=== PATIENT | male | born 1940 | race Two or more races ===

== ENCOUNTER 2018-05-03 13:56 | Emergency (ER) | payer MEDICARE ==
[2018-05-03 14:11] VITALS: BP 114/69
--- NOTE | 2018-05-03 14:53 | UC ---
Hand/Wrist HPI - HPI Summary HPI Summary: patient is on chemo for lymphoma, has swelling left hand with fevers last night- -had similar a few week ago rx with antibiotics and it seem to get better - History Of Current Complaint Chief Complaint: UCUpperExtremity Stated Complaint: WRIST PAIN, FEVER Time Seen by Provider: 05/03/18 14:52 Hx Obtained From: Patient Mechanism Of Injury: no injury Onset/Duration: Gradual Onset, Lasting Days Pain Intensity: 3 Pain Scale Used: 0-10 Numeric Alleviating Factor(s): Nothing Associated Signs And Symptoms: Positive: Swelling - left hand, Redness - left hand Related History: Dominant Hand Right - Allergies/Home Medications Allergies/Adverse Reactions: Allergies Allergy/AdvReac Type Severity Reaction Status Date / Time sulfamethoxazole Allergy See Comment Verified 05/03/18 15:50 [From Bactrim] trimethoprim [From Bactrim] Allergy See Comment Verified 05/03/18 15:50 PMH/Surg Hx/FS Hx/Imm Hx Previously Healthy: No Endocrine History: Dyslipidemia Cardiovascular History: Hypertension GI/ History: Gastroesophageal Reflux Other Cancer History: lymphoma - Surgical History Surgical History: Yes Surgery Procedure, Year, and Place: TWO CARDIAC STENTS PLACED 2003. BILATERAL CARPAL TUNNEL. BILATERAL KNEES SCOPED, TONSILECTOMY. LUMP REMOVED FROM ABDOMEN - Family History Known Family History: Positive: None - Social History Occupation: Retired Lives: With Family Alcohol Use: None Substance Use Type: None Smoking Status (MU): Never Smoked Tobacco - Immunization History Most Recent Influenza Vaccination: Aug 2013 Most Recent Tetanus Shot: UTD Most Recent Pneumonia Vaccination: Aug 2013 Review of Systems Constitutional: Fever, Chills, Fatigue Skin: Negative Eyes: Negative ENT: Negative Respiratory: Negative Cardiovascular: Negative Gastrointestinal: Negative Genitourinary: Negative Motor: Negative Neurovascular: Negative Musculoskeletal: Arthralgia - left hand, Edema - left hand swelling Neurological: Negative Psychological: Negative Is Patient Immunocompromised?: Yes All Other Systems Reviewed And Are Negative: Yes Physical Exam Triage Information Reviewed: Yes Appearance: Well-Appearing, No Pain Distress, Well-Nourished Vital Signs: Initial Vital Signs Temp 99.2 F 05/03/18 14:07 Pulse 65 05/03/18 14:07 Resp 18 05/03/18 14:07 BP 114/69 05/03/18 14:07 Pulse Ox 100 05/03/18 14:07 Vital Signs Reviewed: Yes Eye Exam: Normal Eyes: Positive: Conjunctiva Clear ENT Exam: Normal ENT: Positive: Normal ENT inspection, Hearing grossly normal. Negative: Trismus , Muffled voice, Hoarse voice Dental Exam: Normal Neck exam: Normal Neck: Positive: Supple, Nontender Respiratory Exam: Normal Respiratory: Positive: Chest non-tender, Lungs clear, Normal breath sounds, No respiratory distress, No accessory muscle use Cardiovascular Exam: Normal Cardiovascular: Positive: RRR, No Murmur, Pulses Normal, Brisk Capillary Refill Musculoskeletal Exam: Other Musculoskeletal: Positive: Strength Intact, ROM Intact, Edema @ - left hand Neurological Exam: Normal Neurological: Positive: Alert, Muscle Tone Normal Psychological Exam: Normal Skin Exam: Normal Hand/Wrist Course/Dx - Course Course Of Treatment: d/c from urgent care to follow in the hospital - Differential Dx/Diagnosis Provider Diagnoses: fever,pain swelling left hand, Lymphoma by history Discharge - Sign-Out/Discharge Documenting (check all that apply): Patient Departure - Discharge Plan Condition: Stable Disposition: HOME Patient Education Materials: Cellulitis (ED) Referrals: Keagan Gould MD [Primary Care Provider] - Additional Instructions: please go directly to Hospital emergency department a [facility]. With a history of cancer and being on chemotherapy the fact that you have a fever is concerning and requires more care than what I can't provide at the urgent care - Billing Disposition and Condition Condition: STABLE Disposition: Home
== END 2018-05-03 15:10 | disposition home or self-care (01) ==
LOC: UCEAST 13:56
DX: R50.9 Fever, unspecified (principal); R79.89 Other specified abnormal findings of blood chemistry; C85.90 Non-Hodgkin lymphoma, unspecified, unspecified site; E78.5 Hyperlipidemia, unspecified; I10 Essential (primary) hypertension; K21.9 Gastro-esophageal reflux disease without esophagitis; Z95.5 Presence of coronary angioplasty implant and graft; Z88.2 Allergy status to sulfonamides
CPT/HCPCS: 99212; G0463

== ENCOUNTER 2018-05-03 15:42 | Emergency (ER) | payer MEDICARE ==
[2018-05-03] MEDS ORDERED: Acetaminophen TAB* 325 MG PO ONE (17:06)
[2018-05-03] MEDS ORDERED: NS 0.9% 1000 ML* 1,000 ML IV ONE (17:06)
--- NOTE | 2018-05-03 17:28 | ED ---
HPI Febrile Illness - HPI Summary HPI Summary: This patient is a 77 year old M presenting to [facility] with a chief complaint of fever since yesterday 05/02/18. Endorses fever of 101 05/02/18, lower but still present today. Pt endorses taking amoxicillin for 2 weeks for cellulitis of hand. Sx were alleviated, but returned when he stopped taking the ABx. Pt takes oral chemotherapy drug revlomid. Endorses PMHx staph. Endorses thumb and wrist pain, congestion in lungs. Denies urinary sx. PMHx NIKOLAI, multiple myeloma. - History of Current Complaint Chief Complaint: EDFever Time Seen by Provider: 05/03/18 16:58 Hx Obtained From: Patient Onset/Duration: Started Days Ago, Still Present Timing: Constant Initial Severity: Mild Current Severity: Mild Pain Intensity: 3 Pain Scale Used: 0-10 Numeric Alleviating Factors: Nothing Associated Signs and Symptoms: Joint Pain, Myalgia, Rash, Other: - chest congestion - Allergy/Home Medications Allergies/Adverse Reactions: Allergies Allergy/AdvReac Type Severity Reaction Status Date / Time sulfamethoxazole Allergy See Comment Verified 05/03/18 15:50 [From Bactrim] trimethoprim [From Bactrim] Allergy See Comment Verified 05/03/18 15:50 PMH/Surg Hx/FS Hx/Imm Hx Endocrine/Hematology History: Reports: Hx Anemia - SLIGHTLY ANEMIC Cardiovascular History: Reports: Hx Coronary Artery Disease, Hx Hypertension - ON MEDICATION FOR Denies: Hx Pacemaker/ICD Respiratory History: Reports: Hx Sleep Apnea - uses Bipap GI History: Reports: Hx Gastroesophageal Reflux Disease - ON MEDICATION, Hx Irritable Bowel, Other GI Disorders - LIVER ENZYME OFF PATIENT STATES THEY ARE MONITORED History: Reports: Hx Benign Prostatic Hyperplasia, Other Problems/ Disorders - BPH Musculoskeletal History: Reports: Hx Arthritis - BACK Denies: Hx Osteoporosis Sensory History: Reports: Hx Contacts or Glasses, Hx Vision Problem, Hx Hearing Aid - BOTH EARS, REMOVED, Hx Hearing Problem Opthamlomology History: Reports: Hx Contacts or Glasses, Hx Vision Problem EENT History: Reports: Hx Hearing Problem, Hx Hearing Aid Psychiatric History: Denies: Hx Panic Disorder - Cancer History Cancer Type, Location and Year: 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 BILATERAL CARPAL TUNNEL. BILATERAL KNEES SCOPED, TONSILECTOMY. LUMP REMOVED FROM ABDOMEN Hx Anesthesia Reactions: No Infectious Disease History: No Infectious Disease History: Denies: Traveled Outside the [place] in Last 30 Days - Family History Known Family History: Negative: Blood Disorder - Social History Occupation: Retired Alcohol Use: None Substance Use Type: Reports: None Smoking Status (MU): Never Smoked Tobacco Review of Systems Positive: Fever Positive: Other - chest congestion Negative: burning, dysuria, discharge, frequency, hematuria, incontinence, urgency Positive: Arthralgia, Myalgia, Edema Positive: Rash All Other Systems Reviewed And Are Negative: Yes Physical Exam - Summary Physical Exam Summary: Appearance: Well appearing, no pain distress Skin: hot to the touch, dry, reflects adequate perfusion, thickened tight skin and cracked skin on both palms. Eczematous changes. Head/face: normal Eyes: EOMI, RENEE ENT: normal, moist mucous membranes Neck: supple, non-tender Respiratory: CTA, breath sounds present Cardiovascular: RRR, pulses symmetrical Abdomen: non-tender, soft Bowel Sounds: present Musculoskeletal: normal, strength/ROM intact Neuro: normal, sensory motor intact, A&Ox3 Triage Information Reviewed: Yes Vital Signs On Initial Exam: Initial Vitals Temp Pulse Resp BP Pulse Ox 99.8 F 60 16 150/61 96 05/03/18 15:46 05/03/18 15:46 05/03/18 15:46 05/03/18 15:46 05/03/18 15:46 Vital Signs Reviewed: Yes Diagnostics - Vital Signs Vital Signs Temp Pulse Resp BP Pulse Ox 05/03/18 15:46 99.8 F 60 16 150/61 96 - Laboratory Result Diagrams: 05/03/18 17:43 05/03/18 17:43 Lab Statement: Any lab studies that have been ordered have been reviewed, and results considered in the medical decision making process. - Radiology CXR Xray Interpretation: No Acute Changes Radiology Interpretation Completed By: Radiologist - No radiographic evidence of acute cardiopulmonary disease. Dr. Simons has reviewed this report. Hand XR Xray Interpretation: No Acute Changes Radiology Interpretation Completed By: Radiologist - Age-appropriate degenerative changes as described above without radiographically apparent acute abnormality. Dr. Simons has reviewed this report. Wrist XR Xray Interpretation: No Acute Changes Radiology Interpretation Completed By: Radiologist - Age-appropriate degenerative changes as described above without radiographically apparent acute abnormality. Dr. Simons has reviewed this report. - EKG 1710 Cardiac Rate: NL - 60 EKG Rhythm: Sinus Rhythm ST Segment: Non-Specific EKG Interpretation: borderline LVH, RBBB, nl axis Re-Evaluation - Re-Evaluation First Eval Re-Evaluation Time: 16:33 Change: Improved Comment: feels fine, denies fever and hand pain. Course/Dx - Course Course Of Treatment: Patient with fever of 101 last night and history of multiple myeloma. He had recent cellulitis from eczema and his hands in the dorsum of the left hand. The left hand now is non-erythematous and there is no joint pain. He does have an elevated CRP but stable blood counts for him. There is no pneumonia on x-ray and his urine is negative. His troponin is incidentally slightly positive. He's not had any chest pain. His EKG is unchanged. With his top lift trimmer who wishes for him to be started on oral Levaquin and discharged to follow up with him on Saturday. - Febrile Illness Differential Diagnoses: Other: - Fever of unknown origin, bacteremia, cellulitis , joint infection, gout, pneumonia or UTI - Diagnoses Provider Diagnoses: History of multiple myeloma, Hand pain, Fever - Provider Notifications Discussed Care Of Patient With: Enmanuel Sampson Time Discussed With Above Provider: 18:30 Instructed by Provider To: Other - discussed pt being in ED, elevated trop, dx, pt care. Discharge - Sign-Out/Discharge Documenting (check all that apply): Patient Departure - discharge - Discharge Plan Condition: Good Disposition: HOME Prescriptions: Levofloxacin TAB* [Levaquin TAB*] 750 mg PO DAILY #6 tab Patient Education Materials: Multiple Myeloma (DC), Fever in Adults (ED) Referrals: Enmanuel Sampson MD [Medical Doctor] - Additional Instructions: Stay well-hydrated. Tylenol for fever. Return with joint pain, hand pain, new rash, new symptoms, worse or other concern. Follow-up with Dr. Sampson on Saturday. - Billing Disposition and Condition Condition: GOOD Disposition: Home
--- NOTE | 2018-05-03 17:44 | RAD ---
INDICATION: Fever in a patient multiple myeloma COMPARISON: Most recent comparison chest x-rays dated May 10, 2014 TECHNIQUE: PA and lateral views of the chest were obtained. FINDINGS: The heart and mediastinum are normal in size and contour. The lungs are grossly clear. There is no evidence of large pleural effusion. Visualized bones are normal for the patient's age. There is no radiographic evidence of free air beneath the diaphragm IMPRESSION: No radiographic evidence of acute cardiopulmonary disease.
[2018-05-03 17:50] LABS: ABS Basophils 0.1 10^3/ul (0-0.2); ABS Eosinophils 0.1 10^3/ul (0-0.6); ABS Lymphocytes 1.1 10^3/ul (1.0-4.8); ABS Monocytes 1.1 10^3/ul (0-0.8); ABS Neutrophils 6.3 10^3/ul (1.5-7.7); ABS Nucleated RBC 0 10^3/ul; Eosinophil % 1.4 % (0-6); Hematocrit 33 % (42-52); Hemoglobin 11.4 g/dl (14.0-18.0); Lymphocyte % 12.4 % (25-47); Mean Corpuscular HGB Conc 35 g/dl (31-36); Mean Corpuscular Hemoglobin 33 pg (27-31); Mean Corpuscular Volume 95 fL (80-94); Mean Platelet Volume 8.1 um3 (7.4-10.4); Nucleated Red Blood Cells % 0; Platelet Count 124 10^3/ul (150-450); Red Blood Count 3.45 10^6/ul (4.00-5.40); Red Cell Distribution Width 15 % (10.5-15); White Blood Count 8.6 10^3/ul (3.5-10.8)
--- NOTE | 2018-05-03 17:50 | RAD ---
INDICATION: Cellulitis COMPARISON: None. TECHNIQUE: 2 views of the left hand and 2 views left wrist were obtained. FINDINGS: The adequately corticated bones are in normal alignment. No significant focal osseous abnormality or fracture is seen. Degenerative changes include sclerotic change at the left thumb metacarpal trapezium joint as well as mild sclerotic change of the distal radius. There is narrowing of the interphalangeal joints with a mild degree of marginal osteophyte formation at the thumb interphalangeal joint. IMPRESSION: Age-appropriate degenerative changes as described above without radiographically apparent acute abnormality. If the patient's symptoms persist, follow-up imaging is recommended.
[2018-05-03 18:02] LABS: INR 1.21 (0.77-1.02)
[2018-05-03 18:04] LABS: Urine Appearance Clear; Urine Blood Negative (Negative); Urine Color Yellow; Urine Ketones Negative (Negative); Urine Protein Negative (Negative); Urine Specific Gravity 1.009 (1.010-1.030); Urine Urobilinogen Negative (Negative)
[2018-05-03 18:09] LABS: EGFR Non-African American 102.3 (>60)
[2018-05-03] MEDS ORDERED: Levofloxacin TAB* 250 MG PO ONE (18:36)
[2018-05-03 19:32] VITALS: BP 139/78
== END 2018-05-03 19:33 | disposition home or self-care (01) ==
LOC: ED 15:42
DX: R50.9 Fever, unspecified (principal); M79.642 Pain in left hand; I45.10 Unspecified right bundle-branch block; Z85.828 Personal history of other malignant neoplasm of skin; D64.9 Anemia, unspecified; I25.10 Atherosclerotic heart disease of native coronary artery without angina pectoris; I10 Essential (primary) hypertension; Z95.5 Presence of coronary angioplasty implant and graft; G47.30 Sleep apnea, unspecified; K21.9 Gastro-esophageal reflux disease without esophagitis; N40.0 Benign prostatic hyperplasia without lower urinary tract symptoms; Z88.2 Allergy status to sulfonamides; Z85.830 Personal history of malignant neoplasm of bone; R79.89 Other specified abnormal findings of blood chemistry; C85.90 Non-Hodgkin lymphoma, unspecified, unspecified site; E78.5 Hyperlipidemia, unspecified
CPT/HCPCS: 36415; 71046; 80053; 81003; 83605; 84484; 85025; 85610; 85730; 86140; 87040; 93005; 96360; 99282; A9270-GY